=== PATIENT | male | born 1970 ===

== ENCOUNTER 2023-06-27 14:33 | Outpatient (CLI) | payer OTHER ==
--- NOTE | 2023-06-27 18:34 | XRAY Report ---
PROCEDURE: Toe(s) RT INDICATIONS: LEFT GREAT TOE CRUSHING INJURY TECHNIQUE: An AP view of the foot, as well as 2 views of the first toe(s) acquired. COMPARISON: None. FINDINGS: Bones: There is a comminuted fracture seen involving the distal aspect of the distal phalanx of the great toe. No intra-articular involvement is seen. No additional fractures or dislocations. No suspicious bony lesions. Incidental note is made of a bi partite medial sesamoid bone. Soft tissues: Soft tissue swelling is seen of the great toe. IMPRESSION: Comminuted fracture lines of the distal aspect of the distal phalanx of the great toe. Reviewed by: Patrick Granger MD on 06/27/2023 5:33 PM [facility] Approved by: Patrick Granger MD on 06/27/2023 5:33 PM [facility] Station ID: [id number]
== END 2023-06-27 23:59 | disposition home or self-care (01) ==
LOC: DI.S 14:33
PROVIDERS: ATTEND Physician Assistant
DX: S92.421A Displaced fracture of distal phalanx of right great toe, initial encounter for closed fracture (principal)